=== PATIENT | female | born 1990 | race Caucasian/White ===

== ENCOUNTER 2023-05-18 21:41 | Emergency (ER) | payer OTHER ==
[~2023-05-18] VITALS: Ht 162.6 cm; Wt 108.9 kg
[2023-05-19 01:03] VITALS: BP 128/79; TEMP 98.5; O2SAT 98
== END 2023-05-19 01:11 | disposition home or self-care (01) ==
LOC: ER 21:48
DX: S09.90XA Unspecified injury of head, initial encounter (principal); J45.909 Unspecified asthma, uncomplicated; E03.9 Hypothyroidism, unspecified; Z91.012 Allergy to eggs; Z91.018 Allergy to other foods; Z88.8 Allergy status to other drugs, medicaments and biological substances; Z60.2 Problems related to living alone; W22.8XXA Striking against or struck by other objects, initial encounter; Y93.89 Activity, other specified; Y92.89 Other specified places as the place of occurrence of the external cause; Y99.8 Other external cause status
CPT/HCPCS: 70450-TC